=== PATIENT | female | born 1985 | race African-American/Black ===

== ENCOUNTER 2016-10-05 04:23 | Emergency (ER) | payer MEDICAID ==
[~2016-10-05] VITALS: Ht 157.5 cm; Wt 55.8 kg
[2016-10-05] MEDS ORDERED: DILANTIN100 MG ORAL (04:41)
--- NOTE | 2016-10-05 04:42 | Emergency Room Report ---
History of Present Illness General Chief Complaint: Medical Clearance Source: Patient Present Illness HPI Is a 31-year-old female brought in by police for medical clearance. She has no complaint. She has a history of hepatitis C and seizure. She hasn't taken his seizure medication for over a month now. She blames this on the fact that her insurance doesn't cover Dilantin. Said that she had to seizure in this month already. Seen in the hospital for it. Did not fill her prescription. No other complaints right now. She does not drive. Allergies: Coded Allergies: PENICILLINS (Verified Allergy, Unknown, 10/05/16) Patient History Past Medical History: see triage record, old chart reviewed Past Surgical History: other Pertinent Family History: none Social History: Denies: alcohol use Last Menstrual Period: September 29, 2016 Now: No : 8 Para: 5 Immunizations: other Reviewed Nursing Documentation: PMH: Agreed, PSxH: Agreed Nursing Documentation-PMH Hx Seizures: Yes Review of Systems Eye: Denies: blurred vision, eye pain ENT: Denies: ear pain, nose congestion, throat swelling Respiratory: Denies: cough, shortness of breath Cardiovascular: Denies: chest pain, palpitations Gastrointestinal: Denies: abdominal pain, diarrhea, nausea, vomiting Musculoskeletal: Denies: back pain, joint pain Skin: Denies: rash Neurological: Denies: headache, numbness Endocrine: Denies: increased thirst, increased urine Hematologic/Lymphatic: Denies: easy bruising All Other Systems: negative except mentioned in HPI Physical Exam Vital Signs Date Time Temp Pulse Resp B/P Pulse Ox O2 Delivery O2 Flow Rate FiO2 10/05/16 04:25 98.1 82 14 127/72 100 Room Air vitals normal Sp02 EP Interpretation: reviewed, normal General Appearance: well appearing, no apparent distress, alert Head: normocephalic, atraumatic Eyes: bilateral eye EOMI, bilateral eye PERRL ENT: hearing grossly normal, normal pharynx Neck: full range of motion, supple, no meningismus Respiratory: chest non-tender, lungs clear, normal breath sounds Cardiovascular #1: regular rate, rhythm, no murmur Gastrointestinal: normal bowel sounds, non tender, no mass, no organomegaly, no bruit, non-distended Musculoskeletal: back normal, gait/station normal, normal range of motion Psychiatric: mood/affect normal Skin: warm/dry Medical Decision Making Diagnostic Impression: Primary Impression: Seizure disorder ER Course Patient here for medical clearance. She has no complaint. I gave her a dose of José Luis. We'll put her back on it. We'll discharge to police. Last Vital Signs Date Time Temp Pulse Resp B/P Pulse Ox O2 Delivery O2 Flow Rate FiO2 10/05/16 04:25 98.1 82 14 127/72 100 Room Air Status: improved Disposition: D/C TO LAW ENFORCEMENT IN [facility] Condition: Stable Scripts Phenytoin Sodium Extended* (DILANTIN*) 100 Mg Capsule 300 MG ORAL BEDTIME, #90 CAP Prov: SOCO FARFAN M.D. 10/05/16 Additional Instructions: Abstain from drugs and alcohol. Take your seizure medication. Follow up with your DrDaokta in 7 days as needed. Return if worse. SOCO FARFAN M.D. Oct 05, 2016 04:42
[2016-10-05] MEDS ORDERED: Phenytoin 100mg cap ORAL ONE (04:45)
[2016-10-05 04:49] VITALS: BP 118/78
== END 2016-10-05 04:49 ==
LOC: EMR 04:35
DX: G40.909 Epilepsy, unspecified, not intractable, without status epilepticus (principal); Z86.19 Personal history of other infectious and parasitic diseases; Z88.0 Allergy status to penicillin
CPT/HCPCS: 99283